=== PATIENT | male | born 1935 | race Caucasian/White ===

== ENCOUNTER 2019-10-21 08:33 | Observation (INO) ==
[2019-10-21] MEDS ORDERED: 0.9 % SODIUM CHLORIDE 1,000 ML IV ONE (09:11)
--- NOTE | 2019-10-21 09:35 | Emergency Department Note ---
General Adult HPI - General Chief complaint: Weakness Stated complaint: weakness Time Seen by Provider: 10/21/19 09:20 Source: patient, family Mode of arrival: ambulatory Limitations: no limitations - History of Present Illness HPI Narrative: 2 days ago was seen at [facility] urgent care and treated for pain in the left ear. He was having troubles putting his hearing aid in and was diagnosed with an ear infection. In the past 2 days he has become weak and nauseated with some dry heaves or regurgitation and not been able to eat. He became so weak last night that he fell to the floor and was on the floor for an hour. He has had some coughing as well. He has been using his albuterol inhaler 3-4 times per day but has been doing this chronically. He is short of breath chronically. REVIEW OF SYSTEMS: Reported fever of 102 last evening when the medics came to help him get back into bed. He refused to come to the emergency room at that time. He did have chills beginning yesterday as well as sweats when he tried to get into bed and the effort there. Denies chest pain Has been coughing as well. Had some abdominal discomfort this morning. Has been nauseated. Vomiting is more like dry heaves. No diarrhea. Has chronic constipation for which she takes senna. No hematochezia. Has chronic anxiety and depression. - Related Data Home Medications Medication Instructions Recorded Confirmed Albuterol SO4 3 ml INHALATION 11/15/17 10/07/19 albuterol 90 mcg/actuation aerosol mcg INHALATION 11/15/17 10/07/19 inhaler allopurinol 100 mg tablet 100 mg PO QAM tab 11/15/17 10/07/19 aspirin 325 mg tablet 325 mg PO QDAY 11/15/17 10/07/19 budesonide-formoterol HFA 160 2 puff INHALATION Q12H 11/15/17 10/07/19 mcg-4.5 mcg/actuation aerosol inhaler bupropion HCl 75 mg tablet 75 mg PO BID 11/15/17 10/07/19 cholecalciferol (vitamin D3) 25 1,000 unit PO QAM tab 11/15/17 10/07/19 mcg (1,000 unit) tablet clonazepam 1 mg tablet 1.5 mg PO QHS 11/15/17 10/07/19 finasteride 5 mg tablet 5 mg PO QDAY 11/15/17 10/07/19 gabapentin 300 mg capsule 300 mg PO BID cap 11/15/17 10/07/19 insulin glargine 100 unit/mL 30 unit SUB-Q BID ml 11/15/17 10/07/19 subcutaneous solution levothyroxine 175 mcg tablet 175 mcg PO QAM tab 11/15/17 10/07/19 tamsulosin 0.4 mg capsule 0.4 mg PO QHS cap 11/15/17 10/07/19 atorvastatin 80 mg tablet 40 mg PO QDAY tab 11/19/17 10/07/19 tiotropium bromide 18 mcg capsule 1 cap INHALATION QDAY 06/12/19 10/07/19 with inhalation device insulin aspart U-100 100 unit/mL See Rx Instructions SUB-Q .COMPLEX 10/07/19 10/07/19 (3 mL) subcutaneous pen sennosides 8.6 mg tablet 8.6 mg PO QDAY PRN 10/07/19 10/07/19 Ketorolac Tromethamine 1 drp OP DAILY 10/21/19 10/21/19 methylPREDNISolone [Medrol Dose 4 mg PO DAILY PRN 10/21/19 10/21/19 Pack] Previous Rx's Medication Instructions Recorded lisinopril 40 mg tablet 40 mg PO QHS #90 tab 07/14/19 diltiazem HCl 120 mg 120 mg PO BID #60 cap 10/07/19 capsule,extended release 12 hr Allergies Allergy/AdvReac Type Severity Reaction Status Date / Time Penicillins Allergy Unknown Unknown Verified 10/21/19 08:39 Past Medical History - Past Medical History [facility] Narrative: Medical History (Last Updated 10/21/19 @ 11:37 by Gabe Bermudez DO) CAD (coronary artery disease) (Chronic) Type 2 diabetes mellitus (Chronic) Type 2 diabetes mellitus with stage 3 chronic kidney disease, with long-term current use of insulin (Chronic) Moderate chronic obstructive pulmonary disease (Chronic) Nephrotic range proteinuria (Chronic) Proteinuria due to type 2 diabetes mellitus (Chronic) Chronic kidney disease, stage 3 (Chronic) Hypertensive CKD (chronic kidney disease) (Chronic) Hypertension in stage 3 chronic kidney disease due to type 2 diabetes mellitus (Chronic) Sleep apnea (Chronic) Hypertensive disorder (Chronic) Hyperlipidemia (Chronic) Obesity (BMI 30-39.9) (Chronic) Gout due to renal impairment (Resolved) Lumbago (Chronic) Nocturia (Chronic) Anemia (Chronic) DJD (degenerative joint disease) (Chronic) Hypothyroidism (Chronic) Apnea (Chronic) Hypersomnia (Chronic) Blepharitis (Chronic) Chronic pain (Chronic) Hallux valgus with bunions (Chronic) Chronic bronchitis (Chronic) 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) Vitamin D deficiency (Chronic) Ankle pain, left (Chronic) Hyperuricemia (Chronic) BPH with urinary obstruction (Chronic) Sensorineural hearing loss (Chronic) Pneumonia (Resolved) Past Surgical History (Last Reviewed 07/14/19 @ 11:28 by Les Ken MD) History of coronary artery bypass graft x 3 (Chronic ~2014) History of left knee replacement (Chronic ~2013) History of lobectomy of lung (Chronic ~1958) History of right knee joint replacement (Chronic) Family History (Last Reviewed 07/14/19 @ 11:28 by Les Ken MD) Family/Other Diabetes - Social History smoking status: Former smoker Physical Exam Limitations: no limitations General appearance: alert, in no apparent distress Head: atraumatic, normocephalic Eye: Present: EOMI ENT: Present: mucous membranes dry Neck: Present: trachea midline Chest: Present: symmetric chest wall rise Respiratory: Present: normal lung sounds bilaterally. Absent: respiratory distress, wheezes, stridor, accessory muscle use, prolonged expiratory phase Cardiovascular: Present: regular rate, normal rhythm. Absent: systolic murmur, diastolic murmur Abdominal: Present: soft, tenderness (slight or mild subjectively and diffusely.). Absent: distention, guarding, rebound, rigidity, organomegaly, mass Extremities: Absent: pedal edema, pretibial edema, calf tenderness Neurological: Present: alert, oriented X3 Psychiatric: Present: normal affect, normal mood Skin: Present: warm, dry Course Vital Signs Temperature 99.7 F H 10/21/19 08:34 Pulse Rate 98 H 10/21/19 08:34 Respiratory Rate 20 10/21/19 08:34 Blood Pressure 190/76 10/21/19 08:34 Pulse Oximetry (%) 100 10/21/19 08:34 Temperature 99.7 F H 10/21/19 08:34 Pulse Rate 83 10/21/19 13:46 Respiratory Rate 21 10/21/19 13:46 Blood Pressure 144/57 10/21/19 13:33 Pulse Oximetry (%) 92 10/21/19 13:46 Medical Decision Making - MDM Narrative Medical decision making narrative: 9:23 AM - interviewed and examined. Weakness and poor p.o. intake of uncertain etiology with fall and inability to get up. Will need to do a fairly broad diagnostic work-up. 9:32 AM - old EKGs also reviewed and were similar to today's EKG. 10:28 AM - troponin comes back 0.04. No old ones to compare with. Does have chronic renal failure. 12:08 PM approximately - unable to void. Bladder scan demonstrates 400 cc. Carvajal cath ordered. 12:19 PM - chest x-ray demonstrates mild CHF. I did not see furosemide in his medication list. We will give 20 IV. Of note is that patient was unable to leave a urine sample and was quite very unsteady on his feet. Bladder scan demonstrates over 400 cc. Carvajal cath placed due to this. 2:45 PM - I spoke with Dr. Espinoza, and reviewed his case. The second troponin is still pending and we are waiting for that. 2:55 PM - I spoke with Dr. Espinoza again and he recommended Micah speaking with the music teacher regarding the troponin going from 0.04 up to 0.05 in this individual who has a history of three-vessel disease and bypass and PA. 3:03 PM - I spoke with Dr. Fonseca, music teacher, [facility], who was able to find a troponin from August 2017 that was 0.02 and a creatinine at that time was 1.5. In 2014 is when his troponin was high at 1.86 so probable acute PA at that time. BNP was also elevated to 3131 in 2016. He therefore believes that the elevated troponin we are finding today of 0.04 and 0.05 is compatible with his chronic renal failure and not likely related to acute change/increase in cardiac risk. He would be willing to see patient (received as a transfer) if echocardiogram and so forth is not available in this hospital. 3:20 PM - I spoke with Dr. Magnus Espinoza, who is willing to accept this patient for inpatient care. - Lab Data Lab results reviewed: Yes I reviewed the patient's lab results. Result diagrams: 10/21/19 09:22 01/01/20 09:21 Lab Results 10/21/19 10/21/19 10/21/19 Range/Units 09:21 09:22 09:22 WBC 9.5 (4.50-11.00) K/mcL RBC 4.42 L (4.63-6.08) M/mcL Hgb 12.3 L (13.7-17.5) g/dL Hct 38.5 L (40.1-51.0) % MCV 87.1 (80.0-100.0) fL MCH 27.8 (26.0-34.0) pg MCHC 31.9 (31.0-36.0) g/dL RDW 14.2 (11.5-14.5) % Plt Count 191 (140-440) K/mcL MPV 10.1 (7.4-10.4) fL Gran % 89.3 H (38.0-78.0) % Lymph % (Auto) 6.2 L (15.5-49.0) % Hale % (Auto) 4.1 (1.0-12.0) % Eos % (Auto) 0.1 (0.0-7.0) % Baso % (Auto) 0.3 (0.0-2.0) % Gran # 8.46 H (1.80-8.00) K/mcL Lymph # (Auto) 0.59 L (1.50-4.80) K/mcL Hale # (Auto) 0.39 (0.10-0.90) K/mcL Eos # (Auto) 0.01 (0.00-0.70) K/mcL Baso # (Auto) 0.03 (0.00-0.30) K/mcL VBG Lactic Acid (0.5-2.0) mmol/L Sodium 138 (133-145) mmol/L Potassium 4.4 (3.3-5.1) mmol/L Chloride 97 (96-108) mmol/L Carbon Dioxide 23 (22-30) mmol/L Anion Gap 18.0 H (8-16) BUN 32 H (8-23) mg/dl Creatinine 1.9 H (0.7-1.2) mg/dl GFR Calculation 32 Glucose 163 H (70-105) mg/dL Calcium 9.8 (8.6-10.4) mg/dl Total Bilirubin 1.2 H (0.0-1.0) mg/dL AST 29 (0-37) U/l ALT 27 (0-40) U/l Alkaline Phosphatase 123 H (39-117) U/L Troponin T (0-0.03) ng/ml NT-Pro-B Natriuret Pep 3340.0 H (0-450) pg/ml Total Protein 6.7 (5.9-8.4) gm/dL Albumin 3.9 (3.2-5.2) gm/dL Globulin 2.8 (2.2-3.7) gm/dL Albumin/Globulin Ratio 1.4 (1.0-2.3) Procalcitonin (<0.10) ng/mL Urine Color Urine Appearance Urine pH (5.0-9.0) Ur Specific [place] (1.000-1.035) Urine Protein (NEG) mg/dL Urine Glucose (UA) (NEG) mg/dL Urine Ketones (NEG) mg/dL Urine Occult Blood (<0.03) mg/dL Urine Nitrate (NEG) Urine Bilirubin (NEG) mg/dL Urine Urobilinogen (NEG) mg/dL Ur Leukocyte Esterase (NEG) /uL Urine RBC (0-1) /hpf Urine WBC (0-4) /hpf Ur Squamous Epith Cells (0-4) /hpf Urine Bacteria (0) /hpf Hyaline Casts (0-2) /lpf Urine Mucus (0) /hpf Ur Culture Indicated? 10/21/19 10/21/19 10/21/19 Range/Units 09:22 09:22 10:10 WBC (4.50-11.00) K/mcL RBC (4.63-6.08) M/mcL Hgb (13.7-17.5) g/dL Hct (40.1-51.0) % MCV (80.0-100.0) fL MCH (26.0-34.0) pg MCHC (31.0-36.0) g/dL RDW (11.5-14.5) % Plt Count (140-440) K/mcL MPV (7.4-10.4) fL Gran % (38.0-78.0) % Lymph % (Auto) (15.5-49.0) % Hale % (Auto) (1.0-12.0) % Eos % (Auto) (0.0-7.0) % Baso % (Auto) (0.0-2.0) % Gran # (1.80-8.00) K/mcL Lymph # (Auto) (1.50-4.80) K/mcL Hale # (Auto) (0.10-0.90) K/mcL Eos # (Auto) (0.00-0.70) K/mcL Baso # (Auto) (0.00-0.30) K/mcL VBG Lactic Acid 2.0 (0.5-2.0) mmol/L Sodium (133-145) mmol/L Potassium (3.3-5.1) mmol/L Chloride (96-108) mmol/L Carbon Dioxide (22-30) mmol/L Anion Gap (8-16) BUN (8-23) mg/dl Creatinine (0.7-1.2) mg/dl GFR Calculation Glucose (70-105) mg/dL Calcium (8.6-10.4) mg/dl Total Bilirubin (0.0-1.0) mg/dL AST (0-37) U/l ALT (0-40) U/l Alkaline Phosphatase (39-117) U/L Troponin T 0.04 H* (0-0.03) ng/ml NT-Pro-B Natriuret Pep (0-450) pg/ml Total Protein (5.9-8.4) gm/dL Albumin (3.2-5.2) gm/dL Globulin (2.2-3.7) gm/dL Albumin/Globulin Ratio (1.0-2.3) Procalcitonin 0.26 (<0.10) ng/mL Urine Color Urine Appearance Urine pH (5.0-9.0) Ur Specific [place] (1.000-1.035) Urine Protein (NEG) mg/dL Urine Glucose (UA) (NEG) mg/dL Urine Ketones (NEG) mg/dL Urine Occult Blood (<0.03) mg/dL Urine Nitrate (NEG) Urine Bilirubin (NEG) mg/dL Urine Urobilinogen (NEG) mg/dL Ur Leukocyte Esterase (NEG) /uL Urine RBC (0-1) /hpf Urine WBC (0-4) /hpf Ur Squamous Epith Cells (0-4) /hpf Urine Bacteria (0) /hpf Hyaline Casts (0-2) /lpf Urine Mucus (0) /hpf Ur Culture Indicated? 10/21/19 10/21/19 Range/Units 12:20 13:45 WBC (4.50-11.00) K/mcL RBC (4.63-6.08) M/mcL Hgb (13.7-17.5) g/dL Hct (40.1-51.0) % MCV (80.0-100.0) fL MCH (26.0-34.0) pg MCHC (31.0-36.0) g/dL RDW (11.5-14.5) % Plt Count (140-440) K/mcL MPV (7.4-10.4) fL Gran % (38.0-78.0) % Lymph % (Auto) (15.5-49.0) % Hale % (Auto) (1.0-12.0) % Eos % (Auto) (0.0-7.0) % Baso % (Auto) (0.0-2.0) % Gran # (1.80-8.00) K/mcL Lymph # (Auto) (1.50-4.80) K/mcL Hale # (Auto) (0.10-0.90) K/mcL Eos # (Auto) (0.00-0.70) K/mcL Baso # (Auto) (0.00-0.30) K/mcL VBG Lactic Acid (0.5-2.0) mmol/L Sodium (133-145) mmol/L Potassium (3.3-5.1) mmol/L Chloride (96-108) mmol/L Carbon Dioxide (22-30) mmol/L Anion Gap (8-16) BUN (8-23) mg/dl Creatinine (0.7-1.2) mg/dl GFR Calculation Glucose (70-105) mg/dL Calcium (8.6-10.4) mg/dl Total Bilirubin (0.0-1.0) mg/dL AST (0-37) U/l ALT (0-40) U/l Alkaline Phosphatase (39-117) U/L Troponin T 0.05 H* (0-0.03) ng/ml NT-Pro-B Natriuret Pep (0-450) pg/ml Total Protein (5.9-8.4) gm/dL Albumin (3.2-5.2) gm/dL Globulin (2.2-3.7) gm/dL Albumin/Globulin Ratio (1.0-2.3) Procalcitonin (<0.10) ng/mL Urine Color Yellow Urine Appearance Clear Urine pH 6.0 (5.0-9.0) Ur Specific [place] 1.023 (1.000-1.035) Urine Protein >=500 A (NEG) mg/dL Urine Glucose (UA) 50 A (NEG) mg/dL Urine Ketones Neg (NEG) mg/dL Urine Occult Blood 0.03 A (<0.03) mg/dL Urine Nitrate Neg (NEG) Urine Bilirubin Neg (NEG) mg/dL Urine Urobilinogen Neg (NEG) mg/dL Ur Leukocyte Esterase Neg (NEG) /uL Urine RBC 1 (0-1) /hpf Urine WBC 2 (0-4) /hpf Ur Squamous Epith Cells 1 (0-4) /hpf Urine Bacteria 0 (0) /hpf Hyaline Casts 2 (0-2) /lpf Urine Mucus Few (0) /hpf Ur Culture Indicated? No Disposition Pt seen by RADIOTELEPHONE OPERATOR/PA only: No Clinical Impression: Weakness, Abnormal chest x-ray, Abnormal ECG Fall Qualifiers: Encounter type: initial encounter Qualified Code(s): W19.XXXA - Unspecified fall, initial encounter Acute CHF (congestive heart failure) Qualifiers: Heart failure type: unspecified Qualified Code(s): I50.9 - Heart failure, unspecified Disposition: Xfer As Inpt ([facility]) Condition: Fair Referrals: Kate Saldana ARNP [Primary Care Provider] -
[2019-10-21 09:59] LABS: Basophils # (Auto) 0.03 K/mcL (0.00-0.30); Basophils % (Auto) 0.3 % (0.0-2.0); Eosinophils # (Auto) 0.01 K/mcL (0.00-0.70); Eosinophils % (Auto) 0.1 % (0.0-7.0); Granulocytes % (Auto) 89.3 % (38.0-78.0); Hematocrit 38.5 % (40.1-51.0); Hemoglobin 12.3 g/dL (13.7-17.5); Lymphocytes # (Auto) 0.59 K/mcL (1.50-4.80); Lymphocytes % (Auto) 6.2 % (15.5-49.0); Mean Cell Volume 87.1 fL (80.0-100.0); Mean Corpuscular HGB Conc 31.9 g/dL (31.0-36.0); Mean Platelet Volume 10.1 fL (7.4-10.4); Monocytes # (Auto) 0.39 K/mcL (0.10-0.90); Monocytes % (Auto) 4.1 % (1.0-12.0); Platelet Count 191 K/mcL (140-440); RBC 4.42 M/mcL (4.63-6.08); Red Cell Distribution Width 14.2 % (11.5-14.5); WBC 9.5 K/mcL (4.50-11.00)
[2019-10-21] MEDS ORDERED: ONDANSETRON 4 MG/2 ML VIAL IV ONE (09:59)
[2019-10-21 10:24] LABS: ALT/SGPT 27 U/l (0-40); AST/SGOT 29 U/l (0-37); Albumin 3.9 gm/dL (3.2-5.2); Albumin/Globulin Ratio 1.4 (1.0-2.3); Alkaline Phosphatase 123 U/L (39-117); Bilirubin,Total 1.2 mg/dL (0.0-1.0); Blood Urea Nitrogen 32 mg/dl (8-23); Calcium 9.8 mg/dl (8.6-10.4); Carbon Dioxide 23 mmol/L (22-30); Chloride 97 mmol/L (96-108); Globulin 2.8 gm/dL (2.2-3.7); Glomerular Filtration Rate 32; Glucose 163 mg/dL (70-105)
--- NOTE | 2019-10-21 12:12 | XRay Report ---
CLINICAL INFORMATION: cough, weakness, fever at home COMPARISON: None. FINDINGS: The heart is mildly enlarged. Sternotomy changes noted. Mediastinum is unremarkable. The pulmonary vessels are mildly distended and there is moderate perihilar edema. Moderate-sized patchy infiltrate, likely pneumonia, seen in the posterior left lower lobe with small left pleural effusion. Left diaphragm mildly elevated IMPRESSION: Mild CHF Moderate pneumonia - posterior left lower lobe with small effusion Interpreted and Authenticated by: Kalin Hinkle 10/21/19
[2019-10-21] MEDS ORDERED: FUROSEMIDE 20 MG/2 ML VIAL IV ONE (12:18)
[2019-10-21 13:16] LABS: Appearance,Urine CLEAR; Bacteria,Urine 0 /hpf (0); Bilirubin,Urine NEG (NEG); Color,Urine YELLOW; Culture Indicated,Urine NO; Glucose,Urine (UA) 50 mg/dL (NEG); Ketones,Urine NEG (NEG); Leukocyte Esterase,Urine NEG /uL (NEG); Mucus,Urine FEW /hpf (0); Nitrate,Urine NEG (NEG); Protein,Urine >=500 mg/dL (NEG); Specific Gravity,Urine 1.023 (1.000-1.035); Urine Blood 0.03 mg/dL (<0.03); Urine Hyaline Cast 2 /lpf (0-2); Urine RBC 1 /hpf (0-1); Urine Squamous Epithelial Cell 1 /hpf (0-4); Urine WBC 2 /hpf (0-4); Urobilinogen,Urine NEG (NEG)
--- NOTE | 2019-10-21 16:15 | Internal Med History&Physical ---
Medical - H&P: HPI Patient information: Note initiated : 10/21/19 at 4:12 pm Service Date, if different from initiated Date: [] Patient: Jeremy Evangelista 84 y/o M admitted on for weakness. Chief Complaint: Weakness, leukocytosis History of present illness: Mr. Evangelista is a 84 year old M with a history of CKD stage III, type 2 diabetes mellitus, coronary artery disease status post bypass surgery in 2013, hypertension, COPD, status post left lower and partial upper lobectomies who presents the ED with weakness. Patient was seen at [facility] for complaints of ear pain. He is diagnosed with otitis and started on Bactrim. He says since then his strength has progressively decreased. This was about 3 day s ago. He is a bit vague and and repeats "so much was going on" in the last 3 days, though it appears to be he has had decreased appetite, decreased oral intake and increasing weakness and that he has lost his equilibrium since starting the antibiotic. Early this morning he slid to the floor and he and his spent an hour trying to get him up. He is too weak to get him up and 911 was called. In the emergency department, initially was hypertensive, pulse in the upper 90s and was generally weak. Laboratory shows creatinine elevated 1.9, baseline about 1.5 or 1.6. His troponin was mildly abnormal at 0.04, subsequently 0.05. BNP is elevated at 3340. Chest x-ray showed CHF and possible infiltrate in the left base, though clinically he appeared dry. He also had urinary retention, necessitating a Carvajal catheter. It is noted he has a history of BPH. When I see the patient, he states he is "gone downhill since he started those new pills." Denies fever or headache or rhinorrhea. He is felt some nausea today. Said no abdominal pain no diarrhea. He has baseline dyspnea on exertion related to his lung surgery and COPD, he does not feel that is gotten any better. He is not producing sputum. He continues to have some ear pain which did not change with antibiotics. He is taken the antibiotic, no other new medications. He notes he has had decreased oral intake for the last 3 days. He denies any chest pain/tightness/squeezing/pressure. He is noted no rashes or other skin lesions. On exam, patient appears to be intravascularly depleted, in spite of his BNP (which is stable from 2016 when it was 3131). Patient's being hospitalized for hydration and further evaluation. Review of systems: In addition to above, the patient has complaints of back pain from being on the hospital [facility]. No easy bruising, no bleeding, no hemoptysis, no melena. Except as noted above, the remainder of an 11 point review of systems is negative. 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) CAD (coronary artery disease) (Chronic) Gout due to renal impairment (Resolved) Moderate chronic obstructive pulmonary disease (Chronic) Sleep apnea (Chronic) Hypothyroidism (Chronic) Hyperlipidemia (Chronic) BPH with urinary obstruction (Chronic) History of bronchiectasis, status post lobectomy in 1958 Morbid obesity (Chronic) Nocturia (Chronic) Pneumonia (Chronic) Anemia (Chronic) Lumbago (Chronic) DJD (degenerative joint disease) (Chronic) Hallux valgus with bunions (Chronic) Hypersomnia (Chronic) Blepharitis (Chronic) Chronic pain (Chronic) Vitamin D deficiency (Chronic) Sensorineural hearing loss (Chronic) Surgical history: History of coronary artery bypass graft x 3 (Chronic ~2014) History of left knee replacement (Chronic ~2013) History of lobectomy of lung (Chronic ~1958) -Left lower lobe and partial left upper lobectomy for bronchiectasis History of right knee joint replacement (Chronic) Pertinent family history: Family/Other Diabetes Social history: marital status: occupational status: retired occupation: -[employer] for 11 years smoking status: Former smoker alcohol intake frequency: holiday/special occasion only Medical - H&P: Meds Home Medications Medication Instructions Recorded Confirmed Type Albuterol SO4 3 ml INHALATION 11/15/17 10/07/19 History albuterol 90 mcg/actuation aerosol mcg INHALATION 11/15/17 10/07/19 History inhaler allopurinol 100 mg tablet 100 mg PO QAM tab 11/15/17 10/07/19 History aspirin 325 mg tablet 325 mg PO QDAY 11/15/17 10/07/19 History budesonide-formoterol HFA 160 2 puff INHALATION Q12H 11/15/17 10/07/19 History mcg-4.5 mcg/actuation aerosol inhaler bupropion HCl 75 mg tablet 75 mg PO BID 11/15/17 10/07/19 History cholecalciferol (vitamin D3) 25 1,000 unit PO QAM tab 11/15/17 10/07/19 History mcg (1,000 unit) tablet clonazepam 1 mg tablet 1.5 mg PO QHS 11/15/17 10/07/19 History finasteride 5 mg tablet 5 mg PO QDAY 11/15/17 10/07/19 History gabapentin 300 mg capsule 300 mg PO BID cap 11/15/17 10/07/19 History insulin glargine 100 unit/mL 30 unit SUB-Q BID ml 11/15/17 10/07/19 History subcutaneous solution levothyroxine 175 mcg tablet 175 mcg PO QAM tab 11/15/17 10/07/19 History tamsulosin 0.4 mg capsule 0.4 mg PO QHS cap 11/15/17 10/07/19 History atorvastatin 80 mg tablet 40 mg PO QDAY tab 11/19/17 10/07/19 History tiotropium bromide 18 mcg capsule 1 cap INHALATION QDAY 06/12/19 10/07/19 History with inhalation device lisinopril 40 mg tablet 40 mg PO QHS #90 tab 07/14/19 10/07/19 Rx diltiazem HCl 120 mg 120 mg PO BID #60 cap 10/07/19 10/07/19 Rx capsule,extended release 12 hr insulin aspart U-100 100 unit/mL See Rx Instructions SUB-Q .COMPLEX 10/07/19 10/07/19 History (3 mL) subcutaneous pen sennosides 8.6 mg tablet 8.6 mg PO QDAY PRN 10/07/19 10/07/19 History Ketorolac Tromethamine 1 drp OP DAILY 10/21/19 10/21/19 History methylPREDNISolone [Medrol Dose 4 mg PO DAILY PRN 10/21/19 10/21/19 History Pack] Allergies Allergy/AdvReac Type Severity Reaction Status Date / Time Penicillins Allergy Unknown Unknown Verified 10/21/19 08:39 Medical - H&P: Exam - Constitutional Vitals: Temp Pulse Resp BP Pulse Ox 99.7 F H 85 35 H 149/61 94 10/21/19 08:34 10/21/19 14:47 10/21/19 13:49 10/21/19 15:17 10/21/19 14:47 Exam: GENERAL: Alert, oriented, in no acute distress. Cooperative, appears stated age. HEENT: Atraumatic. PERRL, conjunctiva clear, no scleral icterus. Hearing significantly diminished. Oropharynx has dry mucous membranes and dry tongue. Tongue is midline. NECK: Supple without meningismus, no thyromegaly RESPIRATORY: Breath sounds clear bilaterally without wheezes or rhonchi. Respiratory effort is unlabored. CARDIOVASCULAR: Regular rate and rhythm, no murmur gallop or rub appreciated. Trace peripheral edema. Neck veins are flat while sitting at 30 degrees. Carotid pulses 2+. GI: Abdomen obese, soft, nontender, no guarding or rebound. Bowel sounds are present. MUSCULOSKELETAL: No joint erythema or swelling, normal range of motion in all extremities. SKIN: Warm, dry. No purpura, petechiae or other lesions. Skin turgor decreased. NEUROLOGIC: Cranial nerves II through XII show diminished hearing, otherwise grossly intact. Muscle mass normal for age. Strength 5-/5 in the upper and lower extremities with generalized weakness. Sensation intact to light touch bilaterally. PSYCHIATRIC: Alert, oriented x3, normal mood and affect, mildly decreased insight. Medical - H&P: Reslt - Labs CBC & Chem 7: 10/21/19 09:22 10/21/19 09:21 Labs: Short CBC 10/21/19 10/21/19 10/21/19 Range/Units 09:21 09:22 09:22 WBC 9.5 (4.50-11.00) K/mcL RBC 4.42 L (4.63-6.08) M/mcL Hgb 12.3 L (13.7-17.5) g/dL Hct 38.5 L (40.1-51.0) % MCV 87.1 (80.0-100.0) fL MCH 27.8 (26.0-34.0) pg MCHC 31.9 (31.0-36.0) g/dL RDW 14.2 (11.5-14.5) % Plt Count 191 (140-440) K/mcL MPV 10.1 (7.4-10.4) fL Gran % 89.3 H (38.0-78.0) % Lymph % (Auto) 6.2 L (15.5-49.0) % King % (Auto) 4.1 (1.0-12.0) % Eos % (Auto) 0.1 (0.0-7.0) % Baso % (Auto) 0.3 (0.0-2.0) % Gran # 8.46 H (1.80-8.00) K/mcL Lymph # (Auto) 0.59 L (1.50-4.80) K/mcL King # (Auto) 0.39 (0.10-0.90) K/mcL Eos # (Auto) 0.01 (0.00-0.70) K/mcL Baso # (Auto) 0.03 (0.00-0.30) K/mcL VBG Lactic Acid (0.5-2.0) mmol/L Sodium 138 (133-145) mmol/L Potassium 4.4 (3.3-5.1) mmol/L Chloride 97 (96-108) mmol/L Carbon Dioxide 23 (22-30) mmol/L Anion Gap 18.0 H (8-16) BUN 32 H (8-23) mg/dl Creatinine 1.9 H (0.7-1.2) mg/dl GFR Calculation 32 Glucose 163 H (70-105) mg/dL Calcium 9.8 (8.6-10.4) mg/dl Total Bilirubin 1.2 H (0.0-1.0) mg/dL AST 29 (0-37) U/l ALT 27 (0-40) U/l Alkaline Phosphatase 123 H (39-117) U/L Troponin T (0-0.03) ng/ml NT-Pro-B Natriuret Pep 3340.0 H (0-450) pg/ml Total Protein 6.7 (5.9-8.4) gm/dL Albumin 3.9 (3.2-5.2) gm/dL Globulin 2.8 (2.2-3.7) gm/dL Albumin/Globulin Ratio 1.4 (1.0-2.3) Procalcitonin (<0.10) ng/mL Urine Color Urine Appearance Urine pH (5.0-9.0) Ur Specific [place] (1.000-1.035) Urine Protein (NEG) mg/dL Urine Glucose (UA) (NEG) mg/dL Urine Ketones (NEG) mg/dL Urine Occult Blood (<0.03) mg/dL Urine Nitrate (NEG) Urine Bilirubin (NEG) mg/dL Urine Urobilinogen (NEG) mg/dL Ur Leukocyte Esterase (NEG) /uL Urine RBC (0-1) /hpf Urine WBC (0-4) /hpf Ur Squamous Epith Cells (0-4) /hpf Urine Bacteria (0) /hpf Hyaline Casts (0-2) /lpf Urine Mucus (0) /hpf Ur Culture Indicated? 10/21/19 10/21/19 10/21/19 Range/Units 09:22 09:22 10:10 WBC (4.50-11.00) K/mcL RBC (4.63-6.08) M/mcL Hgb (13.7-17.5) g/dL Hct (40.1-51.0) % MCV (80.0-100.0) fL MCH (26.0-34.0) pg MCHC (31.0-36.0) g/dL RDW (11.5-14.5) % Plt Count (140-440) K/mcL MPV (7.4-10.4) fL Gran % (38.0-78.0) % Lymph % (Auto) (15.5-49.0) % King % (Auto) (1.0-12.0) % Eos % (Auto) (0.0-7.0) % Baso % (Auto) (0.0-2.0) % Gran # (1.80-8.00) K/mcL Lymph # (Auto) (1.50-4.80) K/mcL King # (Auto) (0.10-0.90) K/mcL Eos # (Auto) (0.00-0.70) K/mcL Baso # (Auto) (0.00-0.30) K/mcL VBG Lactic Acid 2.0 (0.5-2.0) mmol/L Sodium (133-145) mmol/L Potassium (3.3-5.1) mmol/L Chloride (96-108) mmol/L Carbon Dioxide (22-30) mmol/L Anion Gap (8-16) BUN (8-23) mg/dl Creatinine (0.7-1.2) mg/dl GFR Calculation Glucose (70-105) mg/dL Calcium (8.6-10.4) mg/dl Total Bilirubin (0.0-1.0) mg/dL AST (0-37) U/l ALT (0-40) U/l Alkaline Phosphatase (39-117) U/L Troponin T 0.04 H* (0-0.03) ng/ml NT-Pro-B Natriuret Pep (0-450) pg/ml Total Protein (5.9-8.4) gm/dL Albumin (3.2-5.2) gm/dL Globulin (2.2-3.7) gm/dL Albumin/Globulin Ratio (1.0-2.3) Procalcitonin 0.26 (<0.10) ng/mL Urine Color Urine Appearance Urine pH (5.0-9.0) Ur Specific [place] (1.000-1.035) Urine Protein (NEG) mg/dL Urine Glucose (UA) (NEG) mg/dL Urine Ketones (NEG) mg/dL Urine Occult Blood (<0.03) mg/dL Urine Nitrate (NEG) Urine Bilirubin (NEG) mg/dL Urine Urobilinogen (NEG) mg/dL Ur Leukocyte Esterase (NEG) /uL Urine RBC (0-1) /hpf Urine WBC (0-4) /hpf Ur Squamous Epith Cells (0-4) /hpf Urine Bacteria (0) /hpf Hyaline Casts (0-2) /lpf Urine Mucus (0) /hpf Ur Culture Indicated? 10/21/19 10/21/19 Range/Units 12:20 13:45 WBC (4.50-11.00) K/mcL RBC (4.63-6.08) M/mcL Hgb (13.7-17.5) g/dL Hct (40.1-51.0) % MCV (80.0-100.0) fL MCH (26.0-34.0) pg MCHC (31.0-36.0) g/dL RDW (11.5-14.5) % Plt Count (140-440) K/mcL MPV (7.4-10.4) fL Gran % (38.0-78.0) % Lymph % (Auto) (15.5-49.0) % King % (Auto) (1.0-12.0) % Eos % (Auto) (0.0-7.0) % Baso % (Auto) (0.0-2.0) % Gran # (1.80-8.00) K/mcL Lymph # (Auto) (1.50-4.80) K/mcL King # (Auto) (0.10-0.90) K/mcL Eos # (Auto) (0.00-0.70) K/mcL Baso # (Auto) (0.00-0.30) K/mcL VBG Lactic Acid (0.5-2.0) mmol/L Sodium (133-145) mmol/L Potassium (3.3-5.1) mmol/L Chloride (96-108) mmol/L Carbon Dioxide (22-30) mmol/L Anion Gap (8-16) BUN (8-23) mg/dl Creatinine (0.7-1.2) mg/dl GFR Calculation Glucose (70-105) mg/dL Calcium (8.6-10.4) mg/dl Total Bilirubin (0.0-1.0) mg/dL AST (0-37) U/l ALT (0-40) U/l Alkaline Phosphatase (39-117) U/L Troponin T 0.05 H* (0-0.03) ng/ml NT-Pro-B Natriuret Pep (0-450) pg/ml Total Protein (5.9-8.4) gm/dL Albumin (3.2-5.2) gm/dL Globulin (2.2-3.7) gm/dL Albumin/Globulin Ratio (1.0-2.3) Procalcitonin (<0.10) ng/mL Urine Color Yellow Urine Appearance Clear Urine pH 6.0 (5.0-9.0) Ur Specific [place] 1.023 (1.000-1.035) Urine Protein >=500 A (NEG) mg/dL Urine Glucose (UA) 50 A (NEG) mg/dL Urine Ketones Neg (NEG) mg/dL Urine Occult Blood 0.03 A (<0.03) mg/dL Urine Nitrate Neg (NEG) Urine Bilirubin Neg (NEG) mg/dL Urine Urobilinogen Neg (NEG) mg/dL Ur Leukocyte Esterase Neg (NEG) /uL Urine RBC 1 (0-1) /hpf Urine WBC 2 (0-4) /hpf Ur Squamous Epith Cells 1 (0-4) /hpf Urine Bacteria 0 (0) /hpf Hyaline Casts 2 (0-2) /lpf Urine Mucus Few (0) /hpf Ur Culture Indicated? No BMP 10/21/19 09:21 Sodium 138 Potassium 4.4 Chloride 97 Carbon Dioxide 23 BUN 32 H Creatinine 1.9 H Glucose 163 H Calcium 9.8 Cardiac Enzymes 10/21/19 10/21/19 Range/Units 09:22 13:45 Troponin T 0.04 H* 0.05 H* (0-0.03) ng/ml Liver Function 10/21/19 Range/Units 09:21 Total Bilirubin 1.2 H (0.0-1.0) mg/dL AST 29 (0-37) U/l ALT 27 (0-40) U/l Alkaline Phosphatase 123 H (39-117) U/L Albumin 3.9 (3.2-5.2) gm/dL Urine 10/21/19 Range/Units 12:20 Urine Color Yellow Urine Appearance Clear Urine pH 6.0 (5.0-9.0) Ur Specific [place] 1.023 (1.000-1.035) Urine Protein >=500 A (NEG) mg/dL Urine Glucose (UA) 50 A (NEG) mg/dL - EKG Data -: EKG Reviewed by Myself (IVCD present) EKG shows normal: sinus rhythm Rate: normal - Imaging and Cardiology Chest x-ray Status: image reviewed by me Additional comments: IMPRESSION: Mild CHF Moderate pneumonia - posterior left lower lobe with small effusion Medical - H&P: A/P - Narrative A/P Narrative: 84-year-old gentleman presents to the hospital with weakness. Progressive weakness. Patient relates onset of symptoms to beginning of TMP/SMX therapy for otitis. Weakness is a known side effect of TMP/SMX at an unknown frequency, though the elderly and of those with renal failure are more susceptible to side effects. Does not appear that there is a drug interaction that may be occurring. In addition, the patient has evidence of dehydration which may be contributing as well. Observation hospitalization Hold TMP/SMX PT evaluation Dehydration. Patient has very dry mucous membranes, decreased skin turgor, appears intravascularly volume depleted. He does have a history of heart failure, though his BNP is at baseline in spite of worsened renal function. Neck veins are flat suggesting volume depletion, in spite of some mild lower extremity edema. He has no rales on exam to suggest worsening CHF, though his radiograph would suggest some heart failure. Overall, he may be total body overloaded, but appears intravascular volume depleted. Hydration Monitor renal function Coronary artery disease, congestive heart failure. Patient with known coronary disease, status post myocardial infarction and bypass grafting approximately 2013. He had a BNP of 3131 back in 2015. At that time his troponin was 0.02. His current abnormal troponins likely reflect decreased renal function, though mild demand mismatch is possible. Continue medical management Recheck troponin in the morning Check echocardiogram Chronic kidney disease stage III. Creatinine is elevated at presentation. Suspect this may be in part due to trimethoprim effect on renal creatinine handling, though prerenal causes from dehydration also possible. Hydrate Hold Bactrim Follow creatinine BPH. On tamsulosin and finasteride at baseline. Required Carvajal in the ED. Voiding trial tomorrow For now continue Carvajal for close monitoring of intake and output COPD, status post left lower and partial left upper lobectomy. There are changes on radiograph, suggesting pneumonia, however the patient does not have any new pulmonary symptoms, leukocytosis or fever to suggest infection. Suspect this x-ray finding may be related to his prior surgical changes. Currently his COPD is without exacerbation. Continue home regimen Type 2 diabetes. On Lantus and short acting insulin at home. Continue Hypertension. Blood pressure elevated at arrival, he had not had his morning medications. We will continue home regimen. CODE STATUS: Patient initially expressed full code, subsequently stated he would not want CPR, intubation only if needed.
[2019-10-21] MEDS ORDERED: ONDANSETRON 4 MG/2 ML VIAL IV PRN (16:59)
[2019-10-21] MEDS ORDERED: DEXTROSE 50% 50 ML VIAL IV PRN (16:59)
[2019-10-21] MEDS ORDERED: LACTULOSE 20 GM/30 ML ORAL.SOL PO PRN (16:59)
[2019-10-21] MEDS ORDERED: DEXTROSE 31 GM ORAL.SUSP PO PRN (16:59)
[2019-10-21] MEDS ORDERED: SENNOSIDES 1 TABLET PO PRN (16:59)
[2019-10-21] MEDS: INSULIN LISPRO 1 UNIT/0.01 ML UNIT SQ SCH ×2 (17:37→20:57)
[2019-10-21] MEDS: 0.9 % SODIUM CHLORIDE 1,000 ML IV SCH (17:38)
[2019-10-21] MEDS: DOCUSATE SODIUM 100 MG CAPSULE PO SCH (20:53)
[2019-10-21] MEDS: ACETAMINOPHEN 325 MG TABLET PO PRN (20:53)
[2019-10-21] MEDS: 0.9 % SODIUM CHLORIDE 10 ML SYRINGE IV SCH (20:57)
[2019-10-22] MEDS: 0.9 % SODIUM CHLORIDE 1,000 ML IV SCH ×2 (01:18→09:07)
[2019-10-22] MEDS: 0.9 % SODIUM CHLORIDE 10 ML SYRINGE IV SCH ×2 (05:44→12:53)
[2019-10-22 06:57] LABS: Blood Urea Nitrogen 32 mg/dl (8-23); Calcium 8.5 mg/dl (8.6-10.4); Carbon Dioxide 23 mmol/L (22-30); Chloride 101 mmol/L (96-108); Glomerular Filtration Rate 32; Glucose 93 mg/dL (70-105)
[2019-10-22] MEDS: INSULIN LISPRO 1 UNIT/0.01 ML UNIT SQ SCH ×2 (07:42→11:12)
[2019-10-22] MEDS: ACETAMINOPHEN 325 MG TABLET PO PRN (07:45)
[2019-10-22] MEDS: DOCUSATE SODIUM 100 MG CAPSULE PO SCH (07:45)
[2019-10-22] MEDS ORDERED: ENOXAPARIN 30 MG/0.3 ML SYRINGE SQ SCH (09:00)
--- NOTE | 2019-10-22 10:38 | Discharge Summary ---
Medical - DS: Prov Patient information: Note initiated : 10/22/19 at 10:34 am Service Date, if different from initiated Date: [] Patient: Jeremy Evangelista 84 y/o M admitted on 10/21/19 for weakness. Chief Complaint: [] Date of admission: 10/21/19 16:30 Discharge date: 10/22/19 Primary care physician: Kate Saldana Attending physician on admission: Elsa Tenorio Consults: 10/21/19 14:33 Consult to Physician [CONS] Stat Comment: Consulting Provider: Elsa Tenorio Reason For Exam: Physician to Consult Attending physician on discharge: Elsa Tenorio Medical - DS: Meds - Discharge Medications Active and Home Medications: Home Medications Albuterol SO4 3 ml INHALATION 11/15/17 [History Confirmed 10/07/19 Last Taken Unknown] albuterol 90 mcg/actuation aerosol inhaler mcg INHALATION 11/15/17 [History Confirmed 10/07/19 Last Taken Unknown] allopurinol 100 mg tablet 100 mg PO QAM tab 11/15/17 [History Confirmed 10/07/19 Last Taken Unknown] aspirin 325 mg tablet 325 mg PO QDAY 11/15/17 [History Confirmed 10/07/19 Last Taken Unknown] budesonide-formoterol HFA 160 mcg-4.5 mcg/actuation aerosol inhaler 2 puff INHALATION Q12H 11/15/17 [History Confirmed 10/07/19 Last Taken Unknown] bupropion HCl 75 mg tablet 75 mg PO BID 11/15/17 [History Confirmed 10/07/19 Last Taken Unknown] cholecalciferol (vitamin D3) 25 mcg (1,000 unit) tablet 1,000 unit PO QAM tab 11/15/17 [History Confirmed 10/07/19 Last Taken Unknown] clonazepam 1 mg tablet 1.5 mg PO QHS 11/15/17 [History Confirmed 10/07/19 Last Taken Unknown] finasteride 5 mg tablet 5 mg PO QDAY 11/15/17 [History Confirmed 10/07/19 Last Taken Unknown] gabapentin 300 mg capsule 300 mg PO BID cap 11/15/17 [History Confirmed 10/07/19 Last Taken Unknown] insulin glargine 100 unit/mL subcutaneous solution 30 unit SUB-Q BID ml 11/15/17 [History Confirmed 10/07/19 Last Taken Unknown] levothyroxine 175 mcg tablet 175 mcg PO QAM tab 11/15/17 [History Confirmed 10/07/19 Last Taken Unknown] tamsulosin 0.4 mg capsule 0.4 mg PO QHS cap 11/15/17 [History Confirmed 10/07/19 Last Taken Unknown] atorvastatin 80 mg tablet 40 mg PO QDAY tab 11/19/17 [History Confirmed 10/07/19 Last Taken Unknown] tiotropium bromide 18 mcg capsule with inhalation device 1 cap INHALATION QDAY 06/12/19 [History Confirmed 10/07/19 Last Taken Unknown] lisinopril 40 mg tablet 40 mg PO QHS #90 tab 07/14/19 [Rx Confirmed 10/07/19 Last Taken Unknown] diltiazem HCl 120 mg capsule,extended release 12 hr 120 mg PO BID #60 cap 10/07/19 [Rx Confirmed 10/07/19 Last Taken Unknown] insulin aspart U-100 100 unit/mL (3 mL) subcutaneous pen See Rx Instructions SUB-Q .COMPLEX 10/07/19 [History Confirmed 10/07/19 Last Taken Unknown] sennosides 8.6 mg tablet 8.6 mg PO QDAY PRN 10/07/19 [History Confirmed 10/07/19 Last Taken Unknown] Ketorolac Tromethamine 1 drp OP DAILY 10/21/19 [History Confirmed 10/21/19 Last Taken Unknown] methylPREDNISolone [Medrol Dose Pack] 4 mg PO DAILY PRN 10/21/19 [History Confirmed 10/21/19 Last Taken Unknown] Medical - DS: Hosp Hospital Course: 10/21 Mr. Evangelista is a 84 year old M with a history of CKD stage III, type 2 diabetes mellitus, coronary artery disease status post bypass surgery in 2013, hypertension, COPD, status post left lower and partial upper lobectomies who presents the ED with weakness. Patient was seen at [facility] for complaints of ear pain. He is diagnosed with otitis and started on Bactrim. He says since then his strength has progressively decreased. This was about 3 days ago. He is a bit vague and and repeats "so much was going on" in the last 3 days, though it appears to be he has had decreased appetite, decreased oral intake and increasing weakness and that he has lost his equilibrium since starting the antibiotic. Early this morning he slid to the floor and he and his spent an hour trying to get him up. He is too weak to get him up and 911 was called. In the emergency department, initially was hypertensive, pulse in the upper 90s and was generally weak. Laboratory shows creatinine elevated 1.9, baseline about 1.5 or 1.6. His troponin was mildly abnormal at 0.04, subsequently 0.05. BNP is elevated at 3340. Chest x-ray showed CHF and possible infiltrate in the left base, though clinically he appeared dry. He also had urinary retention, n ecessitating a Carvajal catheter. It is noted he has a history of BPH. When I see the patient, he states he is "gone downhill since he started those new pills." Denies fever or headache or rhinorrhea. He is felt some nausea today. Said no abdominal pain no diarrhea. He has baseline dyspnea on exertion related to his lung surgery and COPD, he does not feel that is gotten any better. He is not producing sputum. He continues to have some ear pain which did not change with antibiotics. He is taken the antibiotic, no other new medications. He notes he has had decreased oral intake for the last 3 days. He denies any chest pain/tightness/squeezing/pressure. He is noted no rashes or other skin lesions. On exam, patient appears to be intravascularly depleted, in spite of his BNP (which is stable from 2016 when it was 3131). Patient's being hospitalized for hydration and further evaluation. 1/2 Patient's doing much better today. He is hydrated overnight, tolerated that well without dyspnea or hypoxia. He is up and moving around in his room, worked with physical therapy walked to the emergency department and back without difficulty or excessive dyspnea. His is at bedside, she notes that he is back to baseline. In summary, this appears to be dehydration with weakness, possible side effect of TMP/SMX (either an appetite and oral intake or direct effect of the drug causing weaknesswhich is a reported side effect). He appears to be back to baseline. He does have an elevated BNP and slightly abnormal troponin (0.05). Echocardiogram was obtained, report is pending. However given that he is returned to baseline, is felt this could be followed up as an outpatient. Patient's initial chest radiograph suggested left lower infiltrate, however he did have leukocytosis or any significant pulmonary symptoms or fever. Suspect this was chronic postoperative changes from history of lobectomy. Plan: Discharged home, follow-up with primary care, including echo report. Discharge diagnosis: Dehydration with weakness Secondary discharge diagnosis: *Dehydration. Patient had very dry mucous membranes, decreased skin turgor and flat neck veins, appears intravascularly volume depleted at admission; improved/resolved. *Coronary artery disease, congestive heart failure. Follow-up echocardiogram report *Chronic kidney disease stage III. Creatinine improved to baseline with hydration *BPH. On tamsulosin and finasteride at baseline. *COPD, status post left lower and partial left upper lobectomy. *Type 2 diabetes. *Hypertension. - Time Spent with Patient Total time spent providing and/or coordinating discharge services: Greater than 30 minutes Medical - DS: Exam - Constitutional Vitals: Vital Signs Temp Pulse Pulse Resp BP BP Pulse Ox 10/22/19 04:05 98.9 F 91 H 24 H 130/58 92 10/22/19 01:32 22 10/21/19 23:29 98.0 F 83 22 130/57 95 10/21/19 19:52 98.6 F 80 20 119/51 93 10/21/19 19:13 99.0 F 80 24 H 123/53 96 10/21/19 16:59 99.0 F 80 22 134/59 96 10/21/19 16:43 99.7 F H 85 21 147/68 94 10/21/19 16:30 22 96 10/21/19 16:17 21 147/68 10/21/19 16:02 23 H 137/55 10/21/19 15:47 150/60 10/21/19 15:32 134/57 10/21/19 15:17 149/61 10/21/19 15:01 145/63 10/21/19 14:47 85 116/72 94 10/21/19 14:32 89 141/87 91 10/21/19 14:17 90 133/107 93 10/21/19 14:02 90 111/82 94 10/21/19 13:49 82 35 H 141/114 93 10/21/19 13:46 83 21 92 10/21/19 13:33 87 23 H 144/57 92 10/21/19 13:17 88 20 86/62 95 10/21/19 13:02 89 21 152/77 92 10/21/19 12:46 83 23 H 118/73 96 10/21/19 12:33 88 90/56 94 10/21/19 12:20 88 95 10/21/19 12:17 90 155/99 94 10/21/19 12:02 85 28 H 152/62 93 10/21/19 11:47 89 20 163/72 96 10/21/19 11:32 141/54 10/21/19 11:17 142/81 10/21/19 11:02 150/63 10/21/19 10:47 127/82 Intake and Output 10/21/19 10/22/19 10/22/19 21:59 05:59 13:59 Intake Total 958 Output Total 545 560 Balance -545 398 Intake: IV 958 Sodium Chloride 0.9% 1,000 ml @ 958 125 mls/hr IV .Q8H PENDING SALE TO [facility] Rx#: [id number] Output: Urine Catheter Amount 545 560 Other: Urine Appearance Clear Clear Uretheral (Carvajal) Clear Clear Urine Color Bright Yellow Pale Uretheral (Carvajal) Bright Yellow Bright Yellow Urine Odor Normal Uretheral (Carv[place]al) Normal Weight 236 lb Additional comments: General: Sitting up in chair, awake, alert, appears well Chest: Good aeration, no rales Cardiovascular: Regular, trace edema Abdomen: Soft Neuro: Hard of hearing, alert, ambulating with walker Medical - DS: Data Labs on day of discharge: Labs from last 24 hours 10/22/19 10/22/19 10/21/19 04:05 04:05 13:45 VBG Lactic Acid Sodium 137 Potassium 3.9 Chloride 101 Carbon Dioxide 23 Anion Gap 13.0 BUN 32 H Creatinine 1.9 H GFR Calculation 32 Glucose 93 Calcium 8.5 L Troponin T 0.04 H* 0.05 H* Urine Color Urine Appearance Urine pH Ur Specific [place] Urine Protein Urine Glucose (UA) Urine Ketones Urine Occult Blood Urine Nitrate Urine Bilirubin Urine Urobilinogen Ur Leukocyte Esterase Urine RBC Urine WBC Ur Squamous Epith Cells Urine Bacteria Hyaline Casts Urine Mucus Ur Culture Indicated? 10/21/19 10/21/19 12:20 10:10 VBG Lactic Acid 2.0 Sodium Potassium Chloride Carbon Dioxide Anion Gap BUN Creatinine GFR Calculation Glucose Calcium Troponin T Urine Color Yellow Urine Appearance Clear Urine pH 6.0 Ur Specific [place] 1.023 Urine Protein >=500 A Urine Glucose (UA) 50 A Urine Ketones Neg Urine Occult Blood 0.03 A Urine Nitrate Neg Urine Bilirubin Neg Urine Urobilinogen Neg Ur Leukocyte Esterase Neg Urine RBC 1 Urine WBC 2 Ur Squamous Epith Cells 1 Urine Bacteria 0 Hyaline Casts 2 Urine Mucus Few Ur Culture Indicated? No - Impressions Echocardiogram report pending Medical - DS: A/P - Patient/Caregiver Discharge Instructions Activity: increase activity as tolerated Diet: Consistent Carbohydrate - Follow up Plan Follow up with: Kate Saldana ARNP [Primary Care Provider] - 10/29/19 10:00 am Disposition: Home, Self-Care Prognosis: Fair Rehab Potential: Fair Overall status at discharge: patient is back to baseline
[2019-10-23] MEDS ORDERED: PNEUMOCOCCAL 23-VAL P-SAC VAC 0.5 ML SYRINGE IM ONE (10:00)
== END 2019-10-22 14:00 | disposition home or self-care (01) ==
LOC: ED 08:33 → INTOOBSV 16:30 → ICU 16:30
PROVIDERS: ADMIT Internal Medicine; ATTEND Internal Medicine